=== PATIENT | male | born 1995 | race African-American/Black ===

== ENCOUNTER → 2019-04-20 | Outpatient (CLI) | payer BC | LOC: COL.RAD 14:00 | DX: M19.011 Primary osteoarthritis, right shoulder (principal) ==

== ENCOUNTER → 2019-10-15 | Outpatient (CLI) | payer BC | LOC: ZCOL.LAB 13:59 | DX: R05 Cough (principal); R51 Headache; Z20.828 Contact with and (suspected) exposure to other viral communicable diseases ==